=== PATIENT | female | born 1990 | race Caucasian/White ===

== ENCOUNTER 2018-01-20 15:17 | Emergency (ER) | payer MEDICAID ==
[2018-01-20] MEDS ORDERED: Phenergan 25 MG INJ IV ONE ×2 (15:54→18:13)
[2018-01-20] MEDS ORDERED: Sodium Chloride 0.9% 1000 ML 1,000 ML IV STA ×2 (15:54→16:38)
--- NOTE | 2018-01-20 15:54 | ERPHSYRPT ---
- History of Present Illness Time Seen by Provider: 01/20/18 15:50 Source: patient, family Exam Limitations: no limitations Patient Subjective Stated Complaint: Pt states "I am 10 weeks and for the past 4 days I have been vomiting and now it am just dry heaving." Triage Nursing Assessment: Pt alert and oriented X 3, skin pwd. PT ambulates with an upright steady gait, able to speak in clear full sentences. Pt in no apparent respiratory distress. Physician History: The patient is a 27-year-old at 10 weeks female with her and daughter complaining of frequent vomiting for the last 4 days. She's been vomiting throughout her . She was taking Zofran ODT but was switched to a different anti-medic that has not worked well. She denies fever or chills. She denies diarrhea. She has some abdominal cramping while she is vomiting. During her first she also had frequent vomiting. Timing/Duration: day(s) (4), intermittent, gradual onset, worse Severity: severe Modifying Factors: Improves With: nothing Associated Symptoms: nausea, vomiting, abdominal pain Allergies/Adverse Reactions: latex Allergy (Severe, Verified 01/20/18 15:29) Sulfa (Sulfonamide Antibiotics) Allergy (Severe, Verified 01/20/18 15:29) Home Medications: Vits W-Ca,Fe,FA(<1Mg) [] 1 each PO DAILY 01/20/18 [History] Hx Tetanus, Diphtheria Vaccination/Date Given: Yes Hx Influenza Vaccination/Date Given: No Hx Pneumococcal Vaccination/Date Given: No Immunizations Up to Date: Yes - Review of Systems Constitutional: No Fever, No Chills Eyes: No Symptoms Ears, Nose, & Throat: No Symptoms Respiratory: No Cough, No Dyspnea Cardiac: No Chest Pain, No Edema, No Syncope Abdominal/Gastrointestinal: Abdominal Pain, Nausea, Vomiting Genitourinary Symptoms: No Dysuria Musculoskeletal: No Back Pain, No Neck Pain Skin: No Rash Neurological: No Dizziness, No Focal Weakness, No Sensory Changes Psychological: No Symptoms Endocrine: No Symptoms Hematologic/Lymphatic: No Symptoms Immunological/Allergic: No Symptoms All Other Systems: Reviewed and Negative - Past Medical History Pertinent Past Medical History: No - Past Surgical History Past Surgical History: Yes Other Surgical History: tonsils. appendectomy - Social History Smoking Status: Never smoker Exposure to second hand smoke: No Drug Use: none Patient Lives Alone: No - Female History Hx Last Menstrual Period: 10/2017 Hx Now: Yes Expected Date of Delivery: 08/09/18 - Nursing Vital Signs Nursing Vital Signs: Initial Vital Signs Temperature 97.5 F 01/20/18 15:22 Pulse Rate 102 H 01/20/18 15:22 Respiratory Rate 18 01/20/18 15:22 Blood Pressure 150/102 01/20/18 15:22 O2 Sat by Pulse Oximetry 99 01/20/18 15:22 Pain Scale Pain Intensity 0 - Physical Exam General Appearance: no apparent distress, alert Eye Exam: PERRL/EOMI, eyes nml inspection Ears, Nose, Throat Exam: normal ENT inspection, TMs normal, pharynx normal, moist mucous membranes Neck Exam: normal inspection, non-tender, supple, full range of motion Respiratory Exam: normal breath sounds, lungs clear, No respiratory distress Cardiovascular Exam: regular rate/rhythm, normal heart sounds, normal peripheral pulses Gastrointestinal/Abdomen Exam: soft, normal bowel sounds, No tenderness, No mass Pelvic Exam: not done Rectal Exam: not done Back Exam: normal inspection, normal range of motion, No CVA tenderness, No vertebral tenderness Extremity Exam: normal inspection, normal range of motion, pelvis stable Neurologic Exam: alert, oriented x 3, cooperative, normal mood/affect, nml cerebellar function, nml station & gait, sensation nml, No motor deficits Skin Exam: normal color, warm, dry, No rash Lymphatic Exam: No adenopathy SpO2 Interpretation: normal SpO2: 99 Oxygen Delivery: Room Air Ordered Tests: Active Orders 24 hr Category Date Time Status Clean Catch Urine Specimen STAT Care 01/20/18 15:54 Active IV Insertion STAT Care 01/20/18 15:33 Active BMP Stat Lab 01/20/18 15:50 Completed CBC W DIFF Stat Lab 01/20/18 15:50 Completed CULTURE,URINE Stat Lab 01/20/18 17:42 Received UA W/RFX UR CULTURE Stat Lab 01/20/18 17:42 Completed Medication Summary Discontinued Medications Generic Name Dose Route Start Last Admin Trade Name Freq PRN Reason Stop Dose Admin Sodium Chloride 1,000 mls @ 999 mls/hr 01/20/18 15:54 01/20/18 16:51 Sodium Chloride 0.9% 1000 Ml IV 01/20/18 16:54 Infused .Q1H1M STA Infusion Sodium Chloride Confirm 01/20/18 15:56 Sodium Chloride 0.9% 1000 Ml Administered 01/20/18 15:57 Dose 1,000 mls @ ud .ROUTE .STK-MED ONE Sodium Chloride 1,000 mls @ 999 mls/hr 01/20/18 16:38 01/20/18 17:48 Sodium Chloride 0.9% 1000 Ml IV 01/20/18 17:38 Infused .Q1H1M STA Infusion Sodium Chloride Confirm 01/20/18 16:47 Sodium Chloride 0.9% 1000 Ml Administered 01/20/18 16:48 Dose 1,000 mls @ ud .ROUTE .STK-MED ONE Promethazine HCl 12.5 mg 01/20/18 15:54 01/20/18 16:01 Phenergan 25 Mg Inj IV 01/20/18 15:55 12.5 mg STAT ONE Administration Promethazine HCl Confirm 01/20/18 15:56 Phenergan 25 Mg Inj Administered 01/20/18 15:57 Dose 25 mg .ROUTE .STK-MED ONE Lab/Rad Data: Laboratory Result Diagrams 01/20/18 15:50 01/20/18 15:50 Laboratory Results 01/20/18 01/20/18 01/20/18 Range/Units 17:42 15:50 15:50 WBC 7.9 (4.0-10.5) K/mm3 RBC 5.06 (4.1-5.4) M/mm3 Hgb 14.9 (12.0-16.0) gm/dl Hct 41.7 (35-47) % MCV 82.4 (78-100) fl MCH 29.4 (26-32) pg MCHC 35.7 (32-36) g/dl RDW 13.3 (11.5-14.0) % Plt Count 239 (150-450) K/mm3 MPV 9.6 H (6-9.5) fl Gran % 79.0 H (36.0-66.0) % Eos # (Auto) 0.03 (0-0.5) Absolute Lymphs (auto) 0.99 L (1.0-4.6) Absolute Monos (auto) 0.62 (0.0-1.3) Lymphocytes % 12.6 L (24.0-44.0) % Monocytes % 7.9 (0.0-12.0) % Eosinophils % 0.4 (0.00-5.0) % Basophils % 0.1 (0.0-0.4) % Absolute Granulocytes 6.20 (1.4-6.9) Basophils # 0.01 (0-0.4) Sodium 136 L (137-145) mmol/L Potassium 3.6 (3.5-5.1) mmol/L Chloride 99 (98-107) mmol/L Carbon Dioxide 24 (22-30) mmol/L Anion Gap 16.7 H (5-15) MEQ/L BUN 6 L (7-17) mg/dL Creatinine 0.56 (0.52-1.04) mg/dL Estimated GFR > 60.0 ML/MIN Glucose 100 (74-106) mg/dL Calcium 10.1 (8.4-10.2) mg/dL Urine Color DARK YELLOW (YELLOW) Urine Appearance CLOUDY (CLEAR) Urine pH 6.0 (5-6) Ur Specific [place] 1.028 (1.005-1.025) Urine Protein 30 (Negative) Urine Ketones MODERATE (NEGATIVE) Urine Blood NEGATIVE (0-5) David/ul Urine Nitrite NEGATIVE (NEGATIVE) Urine Bilirubin NEGATIVE (NEGATIVE) Urine Urobilinogen 4 (0-1) mg/dL Ur Leukocyte Esterase LARGE (NEGATIVE) Urine WBC (Auto) 11-15 (0-5) /HPF Urine RBC (Auto) 3-5 (0-2) /HPF U Epithel Cells (Auto) FEW (FEW) /HPF Urine Mucus (Auto) MANY (NEGATIVE) /HPF Urine Culture Reflexed YES (NO) Urine Glucose NEGATIVE (NEGATIVE) mg/dL - Progress Progress: improved Counseled pt/family regarding: lab results, diagnosis, need for follow-up - Departure Time of Disposition: 18:14 Departure Disposition: Home Clinical Impression: Hyperemesis gravidarum, UTI (urinary tract infection) Condition: Stable Critical Care Time: No Referrals: EFREN IBRAHIM [Primary Care Provider] - Additional Instructions: You have hyperemesis gravidarum and a UTI. You were given Phenergan 12-1/2 mg by IV 2 times in the ER and 2 L of fluids by IV in the ER. You were also given Keflex 500 mg orally. Take Phenergan 25 mg every 8 hours as needed for vomiting and nausea. Take Keflex 500 mg 4 times a day for 7 days. Follow-up with your OB doctor within one to 2 days. Prescriptions: Promethazine HCl 25 mg [Phenergan 25 mg] 25 mg PO Q8H PRN PRN #10 tablet PRN Reason: Nausea/Vomiting Cephalexin Mh 500 mg [Keflex 500 mg] 1 cap PO QID #28 capsule
[2018-01-20] MEDS ORDERED: Phenergan 25 MG INJ ONE ×2 (15:56→18:16)
[2018-01-20] MEDS ORDERED: Sodium Chloride 0.9% 1000 ML 1,000 ML ONE ×2 (15:56→16:47)
[2018-01-20 16:04] LABS: BASOPHIL % 0.1 % (0.0-0.4); Basophil (Absolute #) 0.01 (0-0.4); Eosinophil % 0.4 % (0.00-5.0); Eosinophil (Absolute #) 0.03 (0-0.5); Hematocrit 41.7 % (35-47); Hemoglobin 14.9 gm/dl (12.0-16.0); Lymphocyte (Absolute #) 0.99 (1.0-4.6); Lymphocytes % 12.6 % (24.0-44.0); Mean Cell Volume 82.4 fl (78-100); Mean Corpuscular Hemoglobin 29.4 pg (26-32); Mean Corpuscular Hgb Concent. 35.7 g/dl (32-36); Mean Platelet Volume 9.6 fl (6-9.5); Monocyte (Absolute #) 0.62 (0.0-1.3); Monocytes % 7.9 % (0.0-12.0); Platelet Count 239 K/mm3 (150-450); Red Blood Count 5.06 M/mm3 (4.1-5.4); Red Cell Distribution Width 13.3 % (11.5-14.0); White Blood Count 7.9 K/mm3 (4.0-10.5)
[2018-01-20 16:17] LABS: ANION GAP 16.7 MEQ/L (5-15); BLOOD UREA NITROGEN 6 mg/dL (7-17); CHLORIDE 99 mmol/L (98-107); Calcium 10.1 mg/dL (8.4-10.2); Carbon Dioxide 24 mmol/L (22-30); Creatinine 1 0.56 mg/dL (0.52-1.04); Glucose 100 mg/dL (74-106); Potassium 3.6 mmol/L (3.5-5.1); SODIUM 136 mmol/L (137-145)
[2018-01-20 16:52] VITALS: O2SAT 99
[2018-01-20 18:04] LABS: Appearance CLOUDY (CLEAR); Bilirubin NEGATIVE (NEGATIVE); Blood NEGATIVE Ery/ul (0-5); Glucose NEGATIVE (NEGATIVE); Ketones MODERATE (NEGATIVE); Leukocyte Esterase LARGE (NEGATIVE); Nitrite NEGATIVE (NEGATIVE); Protein,Urine Dip 30 (Negative); Specific Gravity 1.028 (1.005-1.025); Urobilinogen 4 mg/dL (0-1)
[2018-01-20] MEDS ORDERED: KEFLEX 500 MG PO ONE (18:15)
[2018-01-20] MEDS ORDERED: KEFLEX 500 MG ONE (18:17)
[2018-01-20 18:27] VITALS: BP 167/94; PULSE 84
[2018-01-20] MEDS ORDERED: PHENERGAN 25 MG PO ONE (18:33)
[2018-01-20] MEDS ORDERED: PHENERGAN 25 MG ONE (18:36)
== END 2018-01-20 18:46 | disposition home or self-care (01) ==
LOC: ED 15:17
DX: O21.0 Mild hyperemesis gravidarum (principal); O23.41 Unspecified infection of urinary tract in pregnancy, first trimester; Z3A.10 10 weeks gestation of pregnancy
CPT/HCPCS: 36000; 36415; 80048; 81001; 85025; 87086; 96360; 96361; 96374; 96376; 99284; J2550; A9270-GY

== ENCOUNTER 2018-04-06 16:15 | Observation (INO) | payer OTHER ==
[2018-04-06] MEDS ORDERED: Lactated Ringers 1,000 ML IV ONE ×2 (16:31→16:35)
[2018-04-06 16:49] VITALS: BP 122/79; PULSE 86
== END 2018-04-06 17:55 | disposition home or self-care (01) ==
LOC: OB 16:15
PROVIDERS: ADMIT Family Medicine; ATTEND Family Medicine
DX: E86.0 Dehydration (principal); Z33.1 Pregnant state, incidental
CPT/HCPCS: G0378

== ENCOUNTER 2018-04-10 21:50 | Observation (INO) | payer OTHER ==
[2018-04-10] MEDS ORDERED: Lactated Ringers 1,000 ML IV ONE ×2 (23:21→23:24)
[2018-04-10] MEDS ORDERED: Zofran 4 MG/2 ML VIAL IV STA (23:21)
[2018-04-10] MEDS ORDERED: Zofran 4 MG/2 ML VIAL ONE (23:24)
[2018-04-11 02:10] VITALS: BP 117/69; PULSE 83; O2SAT 97
== END 2018-04-11 02:30 | disposition home or self-care (01) ==
LOC: EDSTATUS 22:26 → MED SURG 22:27
PROVIDERS: ADMIT Family Medicine; ATTEND Family Medicine
DX: Z34.82 Encounter for supervision of other normal pregnancy, second trimester (principal)
CPT/HCPCS: G0378 ×2; J2405

== ENCOUNTER 2018-04-18 17:57 | Observation (INO) | payer OTHER ==
[2018-04-18] MEDS ORDERED: Lactated Ringers 1,000 ML IV ONE ×3 (18:14→19:37)
[2018-04-18] MEDS ORDERED: Lactated Ringers 1,000 ML IV SCH (18:30)
[2018-04-18 18:58] LABS: BASOPHIL % 0.2 % (0.0-0.4); Basophil (Absolute #) 0.02 (0-0.4); Eosinophil % 0.6 % (0.00-5.0); Eosinophil (Absolute #) 0.06 (0-0.5); Granulocyte Absolute (ANC) 8.34 (1.4-6.9); Granulocytes % 86.1 % (36.0-66.0); Hematocrit 35.2 % (35-47); Hemoglobin 11.8 gm/dl (12.0-16.0); Lymphocyte (Absolute #) 0.79 (1.0-4.6); Lymphocytes % 8.2 % (24.0-44.0); Mean Cell Volume 88.7 fl (78-100); Mean Corpuscular Hemoglobin 29.7 pg (26-32); Mean Corpuscular Hgb Concent. 33.5 g/dl (32-36); Mean Platelet Volume 9.9 fl (6-9.5); Monocyte (Absolute #) 0.47 (0.0-1.3); Monocytes % 4.9 % (0.0-12.0); Platelet Count 209 K/mm3 (150-450); Red Blood Count 3.97 M/mm3 (4.1-5.4); Red Cell Distribution Width 13.6 % (11.5-14.0); White Blood Count 9.7 K/mm3 (4.0-10.5)
[2018-04-18 19:14] LABS: ALKALINE PHOSPHATASE 112 U/L (38-126); ANION GAP 14.4 MEQ/L (5-15); BLOOD UREA NITROGEN 8 mg/dL (7-17); CHLORIDE 103 mmol/L (98-107); Calcium 9.2 mg/dL (8.4-10.2); Carbon Dioxide 21 mmol/L (22-30); Glucose 87 mg/dL (74-106); Potassium 3.7 mmol/L (3.5-5.1); SGOT/AST 12 U/L (14-36); SGPT/ALT 14 U/L (0-35); SODIUM 135 mmol/L (137-145)
[2018-04-18] MEDS ORDERED: Zofran 4 MG/2 ML VIAL IV PRN (19:46)
[2018-04-18] MEDS ORDERED: Zofran 4 MG/2 ML VIAL ONE (19:53)
[2018-04-18 20:43] LABS: Appearance SLIGHTLY CLOUDY (CLEAR); Bilirubin NEGATIVE (NEGATIVE); Blood NEGATIVE Ery/ul (0-5); Glucose NEGATIVE (NEGATIVE); Ketones MODERATE (NEGATIVE); Leukocyte Esterase SMALL (NEGATIVE); Nitrite NEGATIVE (NEGATIVE); Protein,Urine Dip 30 (Negative); Specific Gravity 1.029 (1.005-1.025); Urobilinogen 2 mg/dL (0-1)
[2018-04-18 20:50] LABS: Amphetamine,Urine NEGATIVE (NEGATIVE); Barbiturate,Urine NEGATIVE (NEGATIVE); Benzodiazepine,Urine NEGATIVE (NEGATIVE); Cocaine,Urine NEGATIVE (NEGATIVE); Methadone,Urine NEGATIVE (NEGATIVE); Opiate,Urine NEGATIVE (NEGATIVE); PCP,Urine NEGATIVE (NEGATIVE); THC,Urine NEGATIVE (NEGATIVE)
[2018-04-18] MEDS ORDERED: ROCEPHIN 1 Gm-D5w 50 ml Bag** 1 G/50 ML IVPB IV ONE ×2 (21:24→22:00)
[2018-04-18 23:01] VITALS: BP 124/71; PULSE 90
[2018-04-19] MEDS ORDERED: ROCEPHIN 1 Gm-D5w 50 ml Bag** 1 G/50 ML IVPB IV ONE (22:00)
== END 2018-04-18 22:20 | disposition home or self-care (01) ==
LOC: UNDOADMOB 17:57 → MED SURG 17:57 → UNDODISOB 22:20
PROVIDERS: ADMIT Family Medicine; ATTEND Family Medicine
DX: Z34.82 Encounter for supervision of other normal pregnancy, second trimester (principal)
CPT/HCPCS: 36415; 80053; 80307; 81001; 85025; 87086; G0378; J0696; J2405

== ENCOUNTER 2018-04-25 12:55 | Emergency (ER) | payer OTHER ==
--- NOTE | 2018-04-25 13:42 | ERPHSYRPT ---
- History of Present Illness Time Seen by Provider: 04/25/18 13:35 Source: patient Exam Limitations: no limitations Patient Subjective Stated Complaint: vomiting since yesterday, 24 weeks Triage Nursing Assessment: Pt c/o of N&V for past 2 days, 3rd visit in past 3 weeks for same issue due to , appears weak and lethargic, 24 weeks , pain with palpatation in both lower quadrants of abdomen, tachycardic , afebrile, last BM 2 days ago, reports history of constipation, no other issues at this time Physician History: The patient is a 28-year-old female at 24 weeks with her complaining of nausea and vomiting for the past 2 days. She has experienced frequent nausea and vomiting during this entire . She ran out of Zofran. Her OB doctor called a prescription in to the pharmacy but she has not picked it up yet. She says that she is seeing spots when she stands up. She denies abdominal pain Timing/Duration: yesterday, intermittent, gradual onset Severity: moderate Modifying Factors: Improves With: nothing Associated Symptoms: nausea, vomiting Allergies/Adverse Reactions: acetaminophen Allergy (Severe, Verified 04/25/18 13:12) Anaphylactic Reaction latex Allergy (Severe, Verified 04/25/18 13:12) Hives Sulfa (Sulfonamide Antibiotics) Allergy (Severe, Verified 04/25/18 13:12) Hives Bleach (Sodium Hypochlorite) Allergy (Verified 04/25/18 13:12) Home Medications: Vits W-Ca,Fe,FA(<1Mg) [] 1 each PO DAILY 01/20/18 [History] Ondansetron ODT 4 MG [Zofran Odt 4 mg] 4 mg PO Q6H PRN PRN 04/10/18 [ History] Hx Tetanus, Diphtheria Vaccination/Date Given: Yes Hx Influenza Vaccination/Date Given: No Hx Pneumococcal Vaccination/Date Given: No - Review of Systems Constitutional: No Fever, No Chills Eyes: No Symptoms Ears, Nose, & Throat: No Symptoms Respiratory: No Cough, No Dyspnea Cardiac: No Chest Pain, No Edema, No Syncope Abdominal/Gastrointestinal: Nausea, Vomiting, No Diarrhea Genitourinary Symptoms: No Dysuria Musculoskeletal: No Back Pain, No Neck Pain Skin: No Rash Neurological: No Dizziness, No Focal Weakness, No Sensory Changes Psychological: No Symptoms Endocrine: No Symptoms Hematologic/Lymphatic: No Symptoms Immunological/Allergic: No Symptoms All Other Systems: Reviewed and Negative - Past Medical History Pertinent Past Medical History: No Other Medical History: pre eclampsia with 1st - Past Surgical History Past Surgical History: Yes Gastrointestinal: Appendectomy Other Surgical History: tonsils. appendectomy - Social History Smoking Status: Never smoker Exposure to second hand smoke: No Drug Use: none Patient Lives Alone: No - Female History Hx Now: Yes Expected Date of Delivery: 08/12/18 - Nursing Vital Signs Nursing Vital Signs: Initial Vital Signs Temperature 97.4 F 04/25/18 13:02 Pulse Rate 110 H 04/25/18 13:02 Blood Pressure 127/86 04/25/18 13:02 O2 Sat by Pulse Oximetry 98 04/25/18 13:02 Pain Scale Pain Intensity 3 - Physical Exam General Appearance: no apparent distress, alert Eye Exam: PERRL/EOMI, eyes nml inspection Ears, Nose, Throat Exam: normal ENT inspection, TMs normal, pharynx normal, moist mucous membranes Neck Exam: normal inspection, non-tender, supple, full range of motion Respiratory Exam: normal breath sounds, lungs clear, No respiratory distress Cardiovascular Exam: regular rate/rhythm, normal heart sounds, normal peripheral pulses Gastrointestinal/Abdomen Exam: soft, normal bowel sounds, No tenderness, No mass Pelvic Exam: not done Rectal Exam: not done Back Exam: normal inspection, normal range of motion, No CVA tenderness, No vertebral tenderness Extremity Exam: normal inspection, normal range of motion, pelvis stable Neurologic Exam: alert, oriented x 3, cooperative, normal mood/affect, nml cerebellar function, nml station & gait, sensation nml, No motor deficits Skin Exam: normal color, warm, dry, No rash Lymphatic Exam: No adenopathy SpO2 Interpretation: normal SpO2: 98 Oxygen Delivery: Room Air Ordered Tests: Active Orders 24 hr Category Date Time Status Clean Catch Urine Specimen STAT Care 04/25/18 13:44 Active Heart Tones-ED STAT Care 04/25/18 13:46 Active IV Insertion STAT Care 04/25/18 13:44 Active BMP Stat Lab 04/25/18 13:45 Completed CBC W DIFF Stat Lab 04/25/18 13:45 Completed CULTURE,URINE Stat Lab 04/25/18 14:16 Received Lactic Acid Stat Lab 04/25/18 13:52 Completed UA W/RFX UR CULTURE Stat Lab 04/25/18 14:16 Completed Medication Summary Generic Name Dose Route Start Last Admin Trade Name Roque GIMENEZN Reason Stop Dose Admin Sodium Chloride 1,000 mls @ 999 mls/hr 04/25/18 15:01 04/25/18 15:10 Sodium Chloride 0.9% 1000 Ml IV 04/25/18 16:01 999 mls/hr .Q1H1M STA Administration Discontinued Medications Generic Name Dose Route Start Last Admin Trade Name Roque PRN Reason Stop Dose Admin Sodium Chloride 1,000 mls @ 999 mls/hr 04/25/18 13:44 04/25/18 15:10 Sodium Chloride 0.9% 1000 Ml IV 04/25/18 14:44 Infused .Q1H1M STA Infusion Sodium Chloride Confirm 04/25/18 14:00 Sodium Chloride 0.9% 1000 Ml Administered 04/25/18 14:01 Dose 1,000 mls @ ud .ROUTE .STK-MED ONE Sodium Chloride Confirm 04/25/18 15:09 Sodium Chloride 0.9% 1000 Ml Administered 04/25/18 15:10 Dose 1,000 mls @ ud .ROUTE .STK-MED ONE Promethazine HCl 25 mg 04/25/18 13:44 04/25/18 14:05 Phenergan 25 Mg Inj IV 04/25/18 13:45 25 mg STAT ONE Administration Promethazine HCl Confirm 04/25/18 14:00 Phenergan 25 Mg Inj Administered 04/25/18 14:01 Dose 25 mg .ROUTE .STK-MED ONE Lab/Rad Data: Laboratory Result Diagrams 04/25/18 13:45 04/25/18 13:45 Laboratory Results 04/25/18 04/25/18 04/25/18 Range/Units 14:16 13:52 13:45 WBC (4.0-10.5) K/mm3 RBC (4.1-5.4) M/mm3 Hgb (12.0-16.0) gm/dl Hct (35-47) % MCV (78-100) fl MCH (26-32) pg MCHC (32-36) g/dl RDW (11.5-14.0) % Plt Count (150-450) K/mm3 MPV (6-9.5) fl Gran % (36.0-66.0) % Eos # (Auto) (0-0.5) Absolute Lymphs (auto) (1.0-4.6) Absolute Monos (auto) (0.0-1.3) Lymphocytes % (24.0-44.0) % Monocytes % (0.0-12.0) % Eosinophils % (0.00-5.0) % Basophils % (0.0-0.4) % Absolute Granulocytes (1.4-6.9) Basophils # (0-0.4) Sodium 135 L (137-145) mmol/L Potassium 4.0 (3.5-5.1) mmol/L Chloride 103 (98-107) mmol/L Carbon Dioxide 21 L (22-30) mmol/L Anion Gap 14.9 (5-15) MEQ/L BUN 7 (7-17) mg/dL Creatinine 0.56 (0.52-1.04) mg/dL Estimated GFR > 60.0 ML/MIN Glucose 94 (74-106) mg/dL Lactic Acid 1.4 (0.4-2.0) Calcium 9.4 (8.4-10.2) mg/dL Urine Color YELLOW (YELLOW) Urine Appearance CLOUDY (CLEAR) Urine pH 5.0 (5-6) Ur Specific [place] 1.019 (1.005-1.025) Urine Protein 30 (Negative) Urine Ketones SMALL (NEGATIVE) Urine Blood NEGATIVE (0-5) David/ul Urine Nitrite NEGATIVE (NEGATIVE) Urine Bilirubin NEGATIVE (NEGATIVE) Urine Urobilinogen NEGATIVE (0-1) mg/dL Ur Leukocyte Esterase MODERATE (NEGATIVE) Urine WBC (Auto) 6-10 (0-5) /HPF Urine RBC (Auto) 3-5 (0-2) /HPF U Epithel Cells (Auto) FEW (FEW) /HPF Urine Bacteria (Auto) FEW (NEGATIVE) /HPF Urine Mucus (Auto) MODERATE (NEGATIVE) /HPF Urine Culture Reflexed YES (NO) Urine Glucose NEGATIVE (NEGATIVE) mg/dL 04/25/18 Range/Units 13:45 WBC 10.3 (4.0-10.5) K/mm3 RBC 4.22 (4.1-5.4) M/mm3 Hgb 12.4 (12.0-16.0) gm/dl Hct 37.2 (35-47) % MCV 88.2 (78-100) fl MCH 29.4 (26-32) pg MCHC 33.3 (32-36) g/dl RDW 13.6 (11.5-14.0) % Plt Count 211 (150-450) K/mm3 MPV 9.9 H (6-9.5) fl Gran % 87.6 H (36.0-66.0) % Eos # (Auto) 0.04 (0-0.5) Absolute Lymphs (auto) 0.75 L (1.0-4.6) Absolute Monos (auto) 0.47 (0.0-1.3) Lymphocytes % 7.3 L (24.0-44.0) % Monocytes % 4.6 (0.0-12.0) % Eosinophils % 0.4 (0.00-5.0) % Basophils % 0.1 (0.0-0.4) % Absolute Granulocytes 8.99 H (1.4-6.9) Basophils # 0.01 (0-0.4) Sodium (137-145) mmol/L Potassium (3.5-5.1) mmol/L Chloride (98-107) mmol/L Carbon Dioxide (22-30) mmol/L Anion Gap (5-15) MEQ/L BUN (7-17) mg/dL Creatinine (0.52-1.04) mg/dL Estimated GFR ML/MIN Glucose (74-106) mg/dL Lactic Acid (0.4-2.0) Calcium (8.4-10.2) mg/dL Urine Color (YELLOW) Urine Appearance (CLEAR) Urine pH (5-6) Ur Specific [place] (1.005-1.025) Urine Protein (Negative) Urine Ketones (NEGATIVE) Urine Blood (0-5) David/ul Urine Nitrite (NEGATIVE) Urine Bilirubin (NEGATIVE) Urine Urobilinogen (0-1) mg/dL Ur Leukocyte Esterase (NEGATIVE) Urine WBC (Auto) (0-5) /HPF Urine RBC (Auto) (0-2) /HPF U Epithel Cells (Auto) (FEW) /HPF Urine Bacteria (Auto) (NEGATIVE) /HPF Urine Mucus (Auto) (NEGATIVE) /HPF Urine Culture Reflexed (NO) Urine Glucose (NEGATIVE) mg/dL - Progress Progress: improved Progress Note: 04/25/18 15:01 heart tones 155. Counseled pt/family regarding: lab results, diagnosis - Departure Time of Disposition: 16:00 Departure Disposition: Home Clinical Impression: Hyperemesis gravidarum, UTI (urinary tract infection) Condition: Stable Critical Care Time: No Referrals: EFREN IBRAHIM [Primary Care Provider] - Additional Instructions: You have vomiting during your . You were given Phenergan 25 mg and 2 L of fluids by IV in the ER. You also have a mild UTI. Take Macrobid 100 mg 2 times a day for 7 days. Take Phenergan 25 mg suppositories every 8 hours as needed for nausea and vomiting. Take Zofran 4 mg ODT every 6 hours as needed for nausea and vomiting. Follow-up with your OB doctor as needed. Prescriptions: Ondansetron ODT 4 MG [Zofran Odt 4 mg] 4 mg PO Q6H PRN PRN #10 tab.rapdis PRN Reason: Nausea/Vomiting Promethazine HCl 25 mg Supp [Phenergan 25 mg Supp] 25 mg RC Q8H PRN PRN # 12 supp.rect PRN Reason: Nausea/Vomiting Nitrofurantoin Macro 100 mg [Macrobid 100MG Capsule] 100 mg PO BID #14 cap
[2018-04-25] MEDS ORDERED: Phenergan 25 MG INJ IV ONE (13:44)
[2018-04-25] MEDS ORDERED: Sodium Chloride 0.9% 1000 ML 1,000 ML IV STA ×2 (13:44→15:01)
[2018-04-25] MEDS ORDERED: Phenergan 25 MG INJ ONE (14:00)
[2018-04-25] MEDS ORDERED: Sodium Chloride 0.9% 1000 ML 1,000 ML ONE ×2 (14:00→15:09)
[2018-04-25 14:04] LABS: BASOPHIL % 0.1 % (0.0-0.4); Basophil (Absolute #) 0.01 (0-0.4); Eosinophil % 0.4 % (0.00-5.0); Eosinophil (Absolute #) 0.04 (0-0.5); Granulocytes % 87.6 % (36.0-66.0); Hematocrit 37.2 % (35-47); Hemoglobin 12.4 gm/dl (12.0-16.0); Lymphocyte (Absolute #) 0.75 (1.0-4.6); Lymphocytes % 7.3 % (24.0-44.0); Mean Cell Volume 88.2 fl (78-100); Mean Corpuscular Hemoglobin 29.4 pg (26-32); Mean Corpuscular Hgb Concent. 33.3 g/dl (32-36); Mean Platelet Volume 9.9 fl (6-9.5); Monocyte (Absolute #) 0.47 (0.0-1.3); Monocytes % 4.6 % (0.0-12.0); Platelet Count 211 K/mm3 (150-450); Red Blood Count 4.22 M/mm3 (4.1-5.4); Red Cell Distribution Width 13.6 % (11.5-14.0); White Blood Count 10.3 K/mm3 (4.0-10.5)
[2018-04-25 14:20] LABS: ANION GAP 14.9 MEQ/L (5-15); BLOOD UREA NITROGEN 7 mg/dL (7-17); CHLORIDE 103 mmol/L (98-107); Calcium 9.4 mg/dL (8.4-10.2); Carbon Dioxide 21 mmol/L (22-30); Creatinine 1 0.56 mg/dL (0.52-1.04); Glucose 94 mg/dL (74-106); SODIUM 135 mmol/L (137-145)
[2018-04-25 14:27] LABS: Appearance CLOUDY (CLEAR); Bacteria FEW /HPF (NEGATIVE); Bilirubin NEGATIVE (NEGATIVE); Blood NEGATIVE Ery/ul (0-5); Epithelial Cells FEW /HPF (FEW); Glucose NEGATIVE (NEGATIVE); Ketones SMALL (NEGATIVE); Leukocyte Esterase MODERATE (NEGATIVE); Mucus MODERATE /HPF (NEGATIVE); Nitrite NEGATIVE (NEGATIVE); Protein,Urine Dip 30 (Negative); Specific Gravity 1.019 (1.005-1.025); Urobilinogen NEGATIVE mg/dL (0-1)
[2018-04-25 16:15] VITALS: BP 108/76; PULSE 87; O2SAT 97
== END 2018-04-25 16:15 | disposition home or self-care (01) ==
LOC: ED 12:55
DX: O21.0 Mild hyperemesis gravidarum (principal); O23.42 Unspecified infection of urinary tract in pregnancy, second trimester; Z3A.24 24 weeks gestation of pregnancy
CPT/HCPCS: 36000; 36415; 80048; 81001; 83605; 85025; 87086; 96360; 96374; 99284; J2550

== ENCOUNTER 2018-05-07 11:58 | Observation (INO) | payer OTHER ==
[2018-05-07] MEDS ORDERED: Lactated Ringers 1,000 ML IV ONE (12:25)
--- NOTE | 2018-05-07 14:38 | XRAY ---
Indication: Irregular heart rate. 2-dimensional OB ultrasound performed. Comparison: April 01, 2018. Again there is a single viable intrauterine now in cephalic presentation. heart rate 127 BPM with intermittent irregularity. anatomy including three-vessel cord and cord insertion previously documented. Visualized stomach and bladder appear unremarkable. Anterior placenta without abruption/previa. BPD measures 7.08 cm corresponding to 28 weeks 3 days. HC measures 25.80 cm corresponding to 28 weeks 0 day. AC measures 23.75 cm corresponding to 28 weeks 0 day. FL measures 5.17 cm corresponding to 27 weeks 4 days. CHAIM is 14.7 cm. Impression: Again single viable intrauterine with mean gestational age 28 weeks 0 day. Normal progression of . Intermittent irregular heart rate observed.
[2018-05-07 14:39] VITALS: BP 133/68; PULSE 90
== END 2018-05-07 14:30 | disposition home or self-care (01) ==
LOC: OB 11:58
PROVIDERS: ADMIT Family Medicine; ATTEND Family Medicine
DX: Z34.82 Encounter for supervision of other normal pregnancy, second trimester (principal)
CPT/HCPCS: 76805; 81003; G0378

== ENCOUNTER 2018-05-27 02:46 | Observation (INO) | payer OTHER ==
[2018-05-27 04:23] LABS: Appearance CLOUDY (CLEAR); Bilirubin NEGATIVE (NEGATIVE); Blood NEGATIVE Ery/ul (0-5); Epithelial Cells RARE /HPF (FEW); Glucose NEGATIVE (NEGATIVE); Ketones NEGATIVE (NEGATIVE); Leukocyte Esterase NEGATIVE (NEGATIVE); Mucus SLIGHT /HPF (NEGATIVE); Nitrite NEGATIVE (NEGATIVE); Protein,Urine Dip NEGATIVE (Negative); Specific Gravity 1.019 (1.005-1.025); Urobilinogen NEGATIVE mg/dL (0-1)
[2018-05-27] MEDS ORDERED: Lactated Ringers 1,000 ML IV ONE (04:44)
[2018-05-27] MEDS ORDERED: Lactated Ringers 1,000 ML IV SCH (05:00)
--- NOTE | 2018-05-27 08:38 | XRAY ---
Indication: Cervical length. Contractions. Limited OB ultrasound performed to evaluate cervical length. Cervix is closed and measures 3.2 cm in length.
[2018-05-27 08:58] LABS: Hematocrit 33.8 % (35-47); Hemoglobin 10.9 gm/dl (12.0-16.0); Mean Cell Volume 88.9 fl (78-100); Mean Corpuscular Hgb Concent. 32.2 g/dl (32-36); Mean Platelet Volume 10.3 fl (6-9.5); Platelet Count 208 K/mm3 (150-450); Red Cell Distribution Width 13.5 % (11.5-14.0); White Blood Count 9.5 K/mm3 (4.0-10.5)
[2018-05-27 09:02] LABS: ALBUMIN 3.6 g/dL (3.5-5.0); ALKALINE PHOSPHATASE 110 U/L (38-126); ANION GAP 12.6 MEQ/L (5-15); BLOOD UREA NITROGEN 9 mg/dL (7-17); CHLORIDE 106 mmol/L (98-107); Calcium 9.1 mg/dL (8.4-10.2); Carbon Dioxide 23 mmol/L (22-30); Glucose 89 mg/dL (74-106); Potassium 3.9 mmol/L (3.5-5.1); SGOT/AST 15 U/L (14-36); SGPT/ALT 13 U/L (0-35); SODIUM 137 mmol/L (137-145); Total Protein 6.5 g/dL (6.3-8.2)
[2018-05-27 09:11] LABS: Mean Corpuscular Hemoglobin 28.6 pg (26-32)
[2018-05-27 10:39] LABS: Lymphocytes 19 % (24-44); Monocyte 7 % (0.0-12.0); Neutrophils 74 % (36.0-66.0); Platelet Estimate NORMAL (NORMAL); Total Cells Counted 100
[2018-05-27 12:04] VITALS: BP 122/62; PULSE 93
== END 2018-05-27 10:05 | disposition home or self-care (01) ==
LOC: OB 02:46
PROVIDERS: ADMIT Family Medicine; ATTEND Family Medicine
DX: Z34.83 Encounter for supervision of other normal pregnancy, third trimester (principal)
CPT/HCPCS: 36415; 76815; 80053; 81001; 83986; 85025; G0378

== ENCOUNTER 2018-05-29 13:54 | Emergency (ER) | payer OTHER ==
[2018-05-29] MEDS ORDERED: Sodium Chloride 0.9% 1000 ML 1,000 ML IV STA (14:38)
[2018-05-29] MEDS ORDERED: Sodium Chloride 0.9% 1000 ML 1,000 ML ONE (14:53)
--- NOTE | 2018-05-29 15:06 | XRAY ---
Indication: Fever and cough. 29 weeks . Comparison: None Portable chest demonstrates normal heart and lungs. Bony thorax intact with old right 2nd rib fracture.
[2018-05-29 15:08] LABS: Hematocrit 32.3 % (35-47); Hemoglobin 10.7 gm/dl (12.0-16.0); Mean Cell Volume 86.8 fl (78-100); Mean Corpuscular Hgb Concent. 33.1 g/dl (32-36); Mean Platelet Volume 9.4 fl (6-9.5); Platelet Count 162 K/mm3 (150-450); Red Blood Count 3.72 M/mm3 (4.1-5.4); Red Cell Distribution Width 13.4 % (11.5-14.0); White Blood Count 5.1 K/mm3 (4.0-10.5)
[2018-05-29 15:16] LABS: Mean Corpuscular Hemoglobin 28.7 pg (26-32)
[2018-05-29 15:25] LABS: ANION GAP 14.2 MEQ/L (5-15); BLOOD UREA NITROGEN 7 mg/dL (7-17); CHLORIDE 102 mmol/L (98-107); Carbon Dioxide 20 mmol/L (22-30); Creatinine 1 0.73 mg/dL (0.52-1.04); Glucose 97 mg/dL (74-106); Potassium 3.8 mmol/L (3.5-5.1); SODIUM 133 mmol/L (137-145)
[2018-05-29 15:48] LABS: Group A Strep NEGATIVE (NEGATIVE); INFLUENZA A POSITIVE (NEGATIVE)
[2018-05-29 15:49] LABS: INFLUENZA B NEGATIVE (NEGATIVE); RESPIRATORY SYNCTIAL VIRUS NEGATIVE (Negative)
[2018-05-29] MEDS ORDERED: Tamiflu 75MG Capsule PO ONE ×2 (15:49→15:50)
[2018-05-29 15:55] LABS: Appearance CLOUDY (CLEAR); Bacteria RARE /HPF (NEGATIVE); Bilirubin NEGATIVE (NEGATIVE); Blood NEGATIVE Ery/ul (0-5); Epithelial Cells FEW /HPF (FEW); Glucose NEGATIVE (NEGATIVE); Ketones SMALL (NEGATIVE); Leukocyte Esterase MODERATE (NEGATIVE); Mucus MANY /HPF (NEGATIVE); Nitrite NEGATIVE (NEGATIVE); Protein,Urine Dip 100 (Negative); Specific Gravity 1.026 (1.005-1.025); Urobilinogen 4 mg/dL (0-1)
[2018-05-29 16:03] LABS: BAND 8 % (0.0-2.0); Lymphocytes 2 % (24-44); Monocyte 3 % (0.0-12.0); Neutrophils 87 % (36.0-66.0); Platelet Estimate NORMAL (NORMAL); Total Cells Counted 100
[2018-05-29] MEDS ORDERED: KEFLEX 500 MG PO ONE (16:03)
[2018-05-29] MEDS ORDERED: KEFLEX 500 MG ONE (16:15)
--- NOTE | 2018-05-29 16:15 | ERPHSYRPT ---
- History of Present Illness Time Seen by Provider: 05/29/18 14:15 Source: patient Exam Limitations: no limitations Patient Subjective Stated Complaint: TO ER C/O FEVER COUGH AND VOMITING DT THICK SPUTUM X 24 HOUR PT STATES SHE IS 29 WEEKS AND UNABLE TO TAKE ANY COLD MEDICINE. PT STATES SPOUSE IS RECENTLY SICK ALSO. Triage Nursing Assessment: PT ARRIVES PALE/W/D RESP EASY TACHY THOUGH REG. RESP EASY AND CTA Physician History: 28 y/o white female who is 29 weeks and presents with cough and fever of less than 24 hour duration. pt is allergic to tylenol (causes her to stop breathing) and cannot take ibuprofen as she is . pt has an appt to see dr. vidal tomorrow Timing/Duration: yesterday (1) Fever Severity: moderate Fever Therapy CHARACTER ACTOR: none Allergies/Adverse Reactions: acetaminophen Allergy (Severe, Verified 05/29/18 14:05) Anaphylactic Reaction latex Allergy (Severe, Verified 05/29/18 14:05) Hives Sulfa (Sulfonamide Antibiotics) Allergy (Severe, Verified 05/29/18 14:05) Hives Bleach (Sodium Hypochlorite) Allergy (Verified 05/29/18 14:05) Home Medications: Vits W-Ca,Fe,FA(<1Mg) [] 1 each PO DAILY 01/20/18 [History] Hx Tetanus, Diphtheria Vaccination/Date Given: Yes Hx Influenza Vaccination/Date Given: No Hx Pneumococcal Vaccination/Date Given: No - Review of Systems Constitutional: Fever Eyes: No Symptoms Ears, Nose, & Throat: No Symptoms Respiratory: Cough, No Dyspnea, No Stridor, No Wheezing Cardiac: No Symptoms, No Chest Pain, No Palpitations, No Syncope Abdominal/Gastrointestinal: No Symptoms, No Abdominal Pain, No Nausea, No Vomiting, No Diarrhea Genitourinary Symptoms: , No Dysuria, No Frequency, No Hematuria Musculoskeletal: No Symptoms Skin: No Symptoms Neurological: No Symptoms Psychological: No Symptoms Endocrine: No Symptoms Hematologic/Lymphatic: No Symptoms Immunological/Allergic: No Symptoms All Other Systems: Reviewed and Negative - Past Medical History Pertinent Past Medical History: No Other Medical History: pre eclampsia with 1st , 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 appendectomy - Social History Smoking Status: Never smoker Exposure to second hand smoke: No Drug Use: none Patient Lives Alone: No - Female History Hx Last Menstrual Period: 11/04/17 Hx Now: Yes Expected Date of Delivery: 08/12/18 - Nursing Vital Signs Nursing Vital Signs: Initial Vital Signs Temperature 100.1 F 05/29/18 14:07 Pulse Rate 142 H 05/29/18 14:07 Respiratory Rate 18 05/29/18 14:07 Blood Pressure 138/77 05/29/18 14:07 O2 Sat by Pulse Oximetry 98 05/29/18 14:07 - Physical Exam SpO2: 97 - Course Nursing assessment & vital signs reviewed: Yes Ordered Tests: Active Orders 24 hr Category Date Time Status Clean Catch Urine Specimen STAT Care 05/29/18 14:38 Active IV Insertion STAT Care 05/29/18 14:38 Active CHEST 1 VIEW (PORTABLE) Stat Exams 05/29/18 14:39 Completed BMP Stat Lab 05/29/18 15:00 Completed CBC W DIFF Stat Lab 05/29/18 15:00 Completed CULTURE,URINE Stat Lab 05/29/18 15:18 Received Manual Differential NC Stat Lab 05/29/18 15:00 Completed [place] Screen Stat Lab 05/29/18 15:00 Completed UA W/RFX UR CULTURE Stat Lab 05/29/18 15:18 Completed Medication Summary Discontinued Medications Generic Name Dose Route Start Last Admin Trade Name Roque PRN Reason Stop Dose Admin Cephalexin HCl 500 mg 05/29/18 16:03 05/29/18 16:15 Keflex 500 Mg PO 05/29/18 16:04 500 mg STAT ONE Administration Cephalexin HCl Confirm 05/29/18 16:15 Keflex 500 Mg Administered 05/29/18 16:16 Dose 500 mg .ROUTE .STK-MED ONE Sodium Chloride 1,000 mls @ 999 mls/hr 05/29/18 14:38 05/29/18 16:39 Sodium Chloride 0.9% 1000 Ml IV 05/29/18 15:38 Infused .Q1H1M STA Infusion Sodium Chloride Confirm 05/29/18 14:53 Sodium Chloride 0.9% 1000 Ml Administered 05/29/18 14:54 Dose 1,000 mls @ ud .ROUTE .STK-MED ONE Oseltamivir Phosphate 75 mg 05/29/18 15:50 05/29/18 15:51 Tamiflu 75mg Capsule PO 05/29/18 15:51 75 mg STAT ONE Administration Oseltamivir Phosphate Confirm 05/29/18 15:49 Tamiflu 75mg Capsule Administered 05/29/18 15:50 Dose 75 mg PO .STK-MED ONE Lab/Rad Data: Laboratory Result Diagrams 05/29/18 15:00 05/29/18 15:00 Laboratory Results 05/29/18 05/29/18 05/29/18 Range/Units 15:18 15:00 15:00 WBC (4.0-10.5) K/mm3 RBC (4.1-5.4) M/mm3 Hgb (12.0-16.0) gm/dl Hct (35-47) % MCV (78-100) fl MCH (26-32) pg MCHC (32-36) g/dl RDW (11.5-14.0) % Plt Count (150-450) K/mm3 MPV (6-9.5) fl Segmented Neutrophils (36.0-66.0) % Band Neutrophils (0.0-2.0) % Lymphocytes (Manual) (24-44) % Monocytes (Manual) (0.0-12.0) % Platelet Estimate (NORMAL) RBC Morphology Sodium (137-145) mmol/L Potassium (3.5-5.1) mmol/L Chloride (98-107) mmol/L Carbon Dioxide (22-30) mmol/L Anion Gap (5-15) MEQ/L BUN (7-17) mg/dL Creatinine (0.52-1.04) mg/dL Estimated GFR ML/MIN Glucose (74-106) mg/dL Calcium (8.4-10.2) mg/dL Urine Color DARK YELLOW (YELLOW) Urine Appearance CLOUDY (CLEAR) Urine pH 5.0 (5-6) Ur Specific [place] 1.026 (1.005-1.025) Urine Protein 100 (Negative) Urine Ketones SMALL (NEGATIVE) Urine Blood NEGATIVE (0-5) David/ul Urine Nitrite NEGATIVE (NEGATIVE) Urine Bilirubin NEGATIVE (NEGATIVE) Urine Urobilinogen 4 (0-1) mg/dL Ur Leukocyte Esterase MODERATE (NEGATIVE) Urine WBC (Auto) 6-10 (0-5) /HPF Urine RBC (Auto) 3-5 (0-2) /HPF U Epithel Cells (Auto) FEW (FEW) /HPF Urine Bacteria (Auto) RARE (NEGATIVE) /HPF Unidentified Crystals 2-5 (NEGATIVE) /HPF Urine Mucus (Auto) MANY (NEGATIVE) /HPF Urine Culture Reflexed YES (NO) Urine Glucose NEGATIVE (NEGATIVE) mg/dL Monoscreen NEGATIVE (Negative) Influenza Type A Ag POSITIVE (NEGATIVE) Influenza Type B Ag NEGATIVE (NEGATIVE) RSV (PCR) NEGATIVE (Negative) Group A Strep Antibody NEGATIVE (NEGATIVE) 05/29/18 05/29/18 Range/Units 15:00 15:00 WBC 5.1 (4.0-10.5) K/mm3 RBC 3.72 L (4.1-5.4) M/mm3 Hgb 10.7 L (12.0-16.0) gm/dl Hct 32.3 L (35-47) % MCV 86.8 (78-100) fl MCH 28.7 (26-32) pg MCHC 33.1 (32-36) g/dl RDW 13.4 (11.5-14.0) % Plt Count 162 (150-450) K/mm3 MPV 9.4 (6-9.5) fl Segmented Neutrophils 87 H (36.0-66.0) % Band Neutrophils 8 H (0.0-2.0) % Lymphocytes (Manual) 2 L (24-44) % Monocytes (Manual) 3 (0.0-12.0) % Platelet Estimate NORMAL (NORMAL) RBC Morphology NORMAL Sodium 133 L (137-145) mmol/L Potassium 3.8 (3.5-5.1) mmol/L Chloride 102 (98-107) mmol/L Carbon Dioxide 20 L (22-30) mmol/L Anion Gap 14.2 (5-15) MEQ/L BUN 7 (7-17) mg/dL Creatinine 0.73 (0.52-1.04) mg/dL Estimated GFR > 60.0 ML/MIN Glucose 97 (74-106) mg/dL Calcium 9.0 (8.4-10.2) mg/dL Urine Color (YELLOW) Urine Appearance (CLEAR) Urine pH (5-6) Ur Specific [place] (1.005-1.025) Urine Protein (Negative) Urine Ketones (NEGATIVE) Urine Blood (0-5) David/ul Urine Nitrite (NEGATIVE) Urine Bilirubin (NEGATIVE) Urine Urobilinogen (0-1) mg/dL Ur Leukocyte Esterase (NEGATIVE) Urine WBC (Auto) (0-5) /HPF Urine RBC (Auto) (0-2) /HPF U Epithel Cells (Auto) (FEW) /HPF Urine Bacteria (Auto) (NEGATIVE) /HPF Unidentified Crystals (NEGATIVE) /HPF Urine Mucus (Auto) (NEGATIVE) /HPF Urine Culture Reflexed (NO) Urine Glucose (NEGATIVE) mg/dL Monoscreen (Negative) Influenza Type A Ag (NEGATIVE) Influenza Type B Ag (NEGATIVE) RSV (PCR) (Negative) Group A Strep Antibody (NEGATIVE) - Progress Progress: improved Progress Note: 05/29/18 16:46 cxr-normal Counseled pt/family regarding: lab results, diagnosis, need for follow-up, rad results - Departure Time of Disposition: 16:47 Departure Disposition: Home Clinical Impression: Influenza A, UTI (urinary tract infection) Condition: Stable Critical Care Time: No Referrals: EFREN VIDAL [Primary Care Provider] - Additional Instructions: drink plenty of fluids. keep your appointment with dr. vidal in the morning. Prescriptions: Cephalexin Mh 500 mg [Keflex 500 mg] 500 mg PO TID #21 capsule Oseltamivir 75 mg [Tamiflu 75MG Capsule] 75 mg PO BID #10 cap
[2018-05-29 16:53] VITALS: BP 101/44; PULSE 130; O2SAT 98
== END 2018-05-29 16:59 | disposition home or self-care (01) ==
LOC: ED 13:54
DX: J11.1 Influenza due to unidentified influenza virus with other respiratory manifestations (principal); O23.43 Unspecified infection of urinary tract in pregnancy, third trimester
CPT/HCPCS: 36000; 36415; 71045; 80048; 81001; 85025; 86308; 87086; 87631; 87651; 96360; 99284; A9270-GY

== ENCOUNTER 2018-06-15 23:18 | Observation (INO) | payer OTHER ==
[2018-06-15 23:53] VITALS: BP 131/73; PULSE 106
[2018-06-15 23:57] LABS: Amphetamine,Urine NEGATIVE (NEGATIVE); Barbiturate,Urine NEGATIVE (NEGATIVE); Benzodiazepine,Urine NEGATIVE (NEGATIVE); Cocaine,Urine NEGATIVE (NEGATIVE); Methadone,Urine NEGATIVE (NEGATIVE); Opiate,Urine NEGATIVE (NEGATIVE); PCP,Urine NEGATIVE (NEGATIVE); THC,Urine NEGATIVE (NEGATIVE)
[2018-06-15 23:59] LABS: Appearance CLOUDY (CLEAR); Bacteria FEW /HPF (NEGATIVE); Bilirubin NEGATIVE (NEGATIVE); Blood NEGATIVE Ery/ul (0-5); Epithelial Cells MODERATE /HPF (FEW); Glucose NEGATIVE (NEGATIVE); Ketones TRACE (NEGATIVE); Leukocyte Esterase LARGE (NEGATIVE); Mucus SLIGHT /HPF (NEGATIVE); Nitrite NEGATIVE (NEGATIVE); Protein,Urine Dip 30 (Negative); Urobilinogen 2 mg/dL (0-1); WBC 26-50 /HPF (0-5)
== END 2018-06-16 00:55 | disposition home or self-care (01) ==
LOC: OB 23:18
PROVIDERS: ADMIT Family Medicine; ATTEND Family Medicine
DX: Z34.83 Encounter for supervision of other normal pregnancy, third trimester (principal)
CPT/HCPCS: 80307; 81001; 87086; G0378

== ENCOUNTER 2018-06-28 13:27 | Observation (INO) | payer OTHER ==
[2018-06-28 14:05] VITALS: BP 118/65; PULSE 95
[2018-06-28 14:05] LABS: Hematocrit 31.9 % (35-47); Hemoglobin 10.4 gm/dl (12.0-16.0); Mean Cell Volume 87.2 fl (78-100); Mean Corpuscular Hemoglobin 28.4 pg (26-32); Mean Corpuscular Hgb Concent. 32.6 g/dl (32-36); Platelet Count 180 K/mm3 (150-450); Red Blood Count 3.66 M/mm3 (4.1-5.4); Red Cell Distribution Width 14.8 % (11.5-14.0)
[2018-06-28 14:49] LABS: ALBUMIN 3.7 g/dL (3.5-5.0); ALKALINE PHOSPHATASE 138 U/L (38-126); ANION GAP 12.4 MEQ/L (5-15); BLOOD UREA NITROGEN 9 mg/dL (7-17); CHLORIDE 107 mmol/L (98-107); Calcium 8.9 mg/dL (8.4-10.2); Carbon Dioxide 22 mmol/L (22-30); Glucose 93 mg/dL (74-106); Potassium 4.1 mmol/L (3.5-5.1); SGOT/AST 15 U/L (14-36); SGPT/ALT 14 U/L (0-35); SODIUM 137 mmol/L (137-145); Total Protein 6.6 g/dL (6.3-8.2)
== END 2018-06-28 16:00 | disposition home or self-care (01) ==
LOC: OB 13:27
PROVIDERS: ADMIT Family Medicine; ATTEND Family Medicine
DX: Z34.83 Encounter for supervision of other normal pregnancy, third trimester (principal)
CPT/HCPCS: 36415; 59025; 80053; 84550; 85027; G0378

== ENCOUNTER 2018-07-02 00:33 | Observation (INO) | payer OTHER ==
[2018-07-02 01:16] LABS: Amphetamine,Urine NEGATIVE (NEGATIVE); Barbiturate,Urine NEGATIVE (NEGATIVE); Benzodiazepine,Urine NEGATIVE (NEGATIVE); Cocaine,Urine NEGATIVE (NEGATIVE); Methadone,Urine NEGATIVE (NEGATIVE); Opiate,Urine NEGATIVE (NEGATIVE); PCP,Urine NEGATIVE (NEGATIVE); THC,Urine NEGATIVE (NEGATIVE)
[2018-07-02 01:25] LABS: Appearance CLOUDY (CLEAR); Bacteria RARE /HPF (NEGATIVE); Bilirubin NEGATIVE (NEGATIVE); Blood NEGATIVE Ery/ul (0-5); Epithelial Cells MANY /HPF (FEW); Glucose NEGATIVE (NEGATIVE); Ketones NEGATIVE (NEGATIVE); Leukocyte Esterase LARGE (NEGATIVE); Mucus SLIGHT /HPF (NEGATIVE); Nitrite NEGATIVE (NEGATIVE); Protein,Urine Dip NEGATIVE (Negative); Specific Gravity 1.013 (1.005-1.025); Urobilinogen NEGATIVE mg/dL (0-1)
[2018-07-02] MEDS ORDERED: Lactated Ringers 1,000 ML IV ONE (02:55)
[2018-07-02] MEDS: BRETHINE 1 MG/ML SQ PRN ×2 (03:03→05:37)
[2018-07-02] MEDS: Lactated Ringers 1,000 ML IV SCH ×2 (05:38→17:18)
[2018-07-02] MEDS: Zofran 4 MG/2 ML VIAL IV PRN (05:50)
[2018-07-02] MEDS ORDERED: Celestone Soluspan 6MG/ML IM ONE (07:45)
[2018-07-02 07:59] LABS: Hematocrit 30.5 % (35-47); Mean Cell Volume 86.6 fl (78-100); Mean Corpuscular Hemoglobin 28.4 pg (26-32); Mean Corpuscular Hgb Concent. 32.8 g/dl (32-36); Platelet Count 166 K/mm3 (150-450); Red Blood Count 3.52 M/mm3 (4.1-5.4); Red Cell Distribution Width 14.7 % (11.5-14.0); White Blood Count 8.3 K/mm3 (4.0-10.5)
[2018-07-02] MEDS ORDERED: Lactated Ringers 1,000 ML IV SCH (08:00)
[2018-07-02] MEDS ORDERED: Magnesium Sulfate 40 Gm/1000 Ml H2O Premix*** 1,000 ML IV SCH (08:00)
[2018-07-02 08:03] LABS: INR 1.01 (0.8-3.0); PROTIME 11.8 SECONDS (9.95-12.35)
[2018-07-02 08:05] LABS: PTT 22.5 SECONDS (25.3-37.0)
[2018-07-02] MEDS: ROCEPHIN 1 Gm-D5w 50 ml Bag** 1 G/50 ML IVPB IV SCH (08:14)
[2018-07-02 08:20] LABS: ALBUMIN 3.4 g/dL (3.5-5.0); ALKALINE PHOSPHATASE 136 U/L (38-126); ANION GAP 12.7 MEQ/L (5-15); BLOOD UREA NITROGEN 6 mg/dL (7-17); CHLORIDE 106 mmol/L (98-107); Calcium 8.8 mg/dL (8.4-10.2); Carbon Dioxide 21 mmol/L (22-30); Creatinine 1 0.55 mg/dL (0.52-1.04); Glucose 86 mg/dL (74-106); Potassium 3.6 mmol/L (3.5-5.1); SGOT/AST 16 U/L (14-36); SGPT/ALT 17 U/L (0-35); SODIUM 136 mmol/L (137-145); Total Protein 6.1 g/dL (6.3-8.2)
[2018-07-02 10:46] LABS: Appearance CLEAR (CLEAR); Bilirubin NEGATIVE (NEGATIVE); Blood NEGATIVE Ery/ul (0-5); Glucose NEGATIVE (NEGATIVE); Ketones NEGATIVE (NEGATIVE); Leukocyte Esterase NEGATIVE (NEGATIVE); Mucus SLIGHT /HPF (NEGATIVE); Nitrite NEGATIVE (NEGATIVE); Protein,Urine Dip NEGATIVE (Negative); Urobilinogen NEGATIVE mg/dL (0-1)
[2018-07-02 10:50] LABS: Bacteria FEW /HPF (NEGATIVE); Epithelial Cells FEW /HPF (FEW); RBC 0-2 /HPF (0-2); WBC 0-2 /HPF (0-5)
--- NOTE | 2018-07-02 11:14 | XRAY ---
Indication: labor. well-being. 2-dimensional OB ultrasound performed. Comparison: May 07, 2018. Again there is a single viable intrauterine in cephalic presentation. heart rate 147 BPM. anatomy including three-vessel cord and cord insertion previously documented. Visualized stomach and bladder appear unremarkable. Anterior placenta without abruption/previa. Cervical length measures 3.3 cm. BPD measures 9.51 cm corresponding to 38 weeks 6 days. HC measures 33.64 cm corresponding to 38 weeks 4 days. AC measures 33.86 cm corresponding to 37 weeks 5 days. FL measures 7.23 cm corresponding to 37 weeks 0 day. CHAIM is 12.6 cm. Impression: Again single viable intrauterine with mean gestational age 38 weeks 0 day. There has been progression of with fetus now measuring 14 days larger since comparison exam and 21 days larger since first exam January 22, 2018.
[2018-07-02 13:20] VITALS: O2SAT 98
--- NOTE | 2018-07-02 17:20 | XRAY ---
Indication: Right-sided pain. Two-dimensional renal sonogram performed. Comparison: None Both kidneys normal in reniform shape with normal perfusion. Right kidney measures 13.0 x 5.5 x 5.3 cm and the left measures 13.0 x 5.3 x 5.7 cm. Right kidney demonstrates mild hydronephrosis. Otherwise no suspicious renal mass or perinephric fluid. Cortical medullary differentiation preserved. Urinary bladder is empty via Bull catheter. Incidental tiny gallstones. Impression: 1. Mild right hydronephrosis without suspicious renal mass. CT renal stone study may yield further information if clinically warranted. 2. Negative left renal sonogram. 3. Incidental tiny gallstones.
[2018-07-02] MEDS ORDERED: CORTISONE 1% CREAM TP PRN (23:58)
[2018-07-03] MEDS ORDERED: Phenergan 25 MG INJ IV PRN
[2018-07-03] MEDS ORDERED: MORPHINE SULFATE 10 MG/ML IV PRN (00:06)
[2018-07-03] MEDS: Zofran 4 MG/2 ML VIAL IV PRN (00:56)
[2018-07-03] MEDS: Lactated Ringers 1,000 ML IV SCH (05:10)
[2018-07-03] MEDS ORDERED: Celestone Soluspan 6MG/ML IM ONE (08:34)
[2018-07-03] MEDS: ROCEPHIN 1 Gm-D5w 50 ml Bag** 1 G/50 ML IVPB IV SCH (09:08)
[2018-07-03 11:40] VITALS: BP 109/69; PULSE 78
== END 2018-07-03 10:00 | disposition home or self-care (01) ==
LOC: OB 00:33
PROVIDERS: ADMIT Family Medicine; ATTEND Family Medicine
DX: Z34.83 Encounter for supervision of other normal pregnancy, third trimester (principal)
CPT/HCPCS: 36415; 76770; 76805; 80053; 80307; 81001; 83735; 83986; 85027; 85610; 85730; 87081; 87086; 96372; G0378; J0696; J0702; J2405; A9270-GY

== ENCOUNTER 2018-07-03 08:25 | Observation (INO) | payer OTHER ==
[2018-07-05 13:53] VITALS: BP 119/74; PULSE 88
== END 2018-07-05 14:15 | disposition home or self-care (01) ==
LOC: EDSTATUS 13:27 → RAD 07-05 13:20 → OB 07-05 13:28
PROVIDERS: ADMIT Family Medicine; ATTEND Family Medicine
DX: Z34.83 Encounter for supervision of other normal pregnancy, third trimester (principal)
CPT/HCPCS: 59025; G0378

== ENCOUNTER 2018-07-09 12:15 | Observation (INO) | payer OTHER ==
[2018-07-09 12:45] VITALS: BP 123/71; PULSE 91
== END 2018-07-09 14:01 | disposition home or self-care (01) ==
LOC: OB 12:15
PROVIDERS: ADMIT Family Medicine; ATTEND Family Medicine
DX: Z34.83 Encounter for supervision of other normal pregnancy, third trimester (principal)
CPT/HCPCS: 59025; G0378

== ENCOUNTER 2018-07-12 12:03 | Observation (INO) | payer OTHER ==
[2018-07-12 13:08] VITALS: PULSE 100
== END 2018-07-12 12:40 | disposition home or self-care (01) ==
LOC: OB 12:03
PROVIDERS: ADMIT Family Medicine; ATTEND Family Medicine
DX: Z34.83 Encounter for supervision of other normal pregnancy, third trimester (principal)
CPT/HCPCS: 59025; G0378

== ENCOUNTER 2018-07-14 23:22 | Observation (INO) | payer OTHER ==
[2018-07-15 00:04] LABS: Appearance SLIGHTLY CLOUDY (CLEAR); Bacteria RARE /HPF (NEGATIVE); Bilirubin NEGATIVE (NEGATIVE); Blood NEGATIVE Ery/ul (0-5); Epithelial Cells RARE /HPF (FEW); Glucose 50 mg/dL (NEGATIVE); Ketones TRACE (NEGATIVE); Leukocyte Esterase TRACE (NEGATIVE); Mucus SLIGHT /HPF (NEGATIVE); Nitrite NEGATIVE (NEGATIVE); Protein,Urine Dip 30 (Negative); RBC 0-2 /HPF (0-2); Specific Gravity 1.028 (1.005-1.025); Urobilinogen 4 mg/dL (0-1)
[2018-07-15 01:55] VITALS: BP 120/59; PULSE 90
== END 2018-07-15 02:05 | disposition home or self-care (01) ==
LOC: OB 23:22
PROVIDERS: ADMIT Family Medicine; ATTEND Family Medicine
DX: Z34.83 Encounter for supervision of other normal pregnancy, third trimester (principal)
CPT/HCPCS: 81001; 87086; G0378

== ENCOUNTER 2018-07-17 14:04 | Observation (INO) | payer OTHER ==
[2018-07-17 14:27] VITALS: BP 126/81; PULSE 90
== END 2018-07-17 15:05 | disposition home or self-care (01) ==
LOC: OB 14:04
PROVIDERS: ADMIT Family Medicine; ATTEND Family Medicine
DX: Z34.83 Encounter for supervision of other normal pregnancy, third trimester (principal)
CPT/HCPCS: G0378

== ENCOUNTER 2018-07-19 12:35 | Observation (INO) | payer OTHER ==
[2018-07-19 13:14] VITALS: BP 125/67; PULSE 91
== END 2018-07-19 13:10 | disposition home or self-care (01) ==
LOC: OB 12:35
PROVIDERS: ADMIT Family Medicine; ATTEND Family Medicine
DX: Z34.83 Encounter for supervision of other normal pregnancy, third trimester (principal)
CPT/HCPCS: 59025; G0378

== ENCOUNTER 2018-07-22 10:38 | Inpatient (IN) | payer OTHER ==
[2018-07-22] MEDS ORDERED: Cervidil 10 MG VAG SCH (12:00)
[2018-07-22] MEDS ORDERED: BRETHINE 1 MG/ML SQ PRN (12:00)
[2018-07-22 13:06] LABS: BASOPHIL % 0.2 % (0.0-0.4); Basophil (Absolute #) 0.02 (0-0.4); Eosinophil % 0.6 % (0.00-5.0); Eosinophil (Absolute #) 0.05 (0-0.5); Granulocyte Absolute (ANC) 6.82 (1.4-6.9); Granulocytes % 83.1 % (36.0-66.0); Hematocrit 31.5 % (35-47); Hemoglobin 10.3 gm/dl (12.0-16.0); Mean Cell Volume 85.1 fl (78-100); Mean Corpuscular Hemoglobin 27.8 pg (26-32); Mean Corpuscular Hgb Concent. 32.7 g/dl (32-36); Mean Platelet Volume 10.1 fl (6-9.5); Monocyte (Absolute #) 0.42 (0.0-1.3); Monocytes % 5.1 % (0.0-12.0); Platelet Count 164 K/mm3 (150-450); Red Cell Distribution Width 15.2 % (11.5-14.0); White Blood Count 8.2 K/mm3 (4.0-10.5)
[2018-07-22 13:56] LABS: Amphetamine,Urine NEGATIVE (NEGATIVE); Barbiturate,Urine NEGATIVE (NEGATIVE); Benzodiazepine,Urine NEGATIVE (NEGATIVE); Cocaine,Urine NEGATIVE (NEGATIVE); Methadone,Urine NEGATIVE (NEGATIVE); Opiate,Urine NEGATIVE (NEGATIVE); PCP,Urine NEGATIVE (NEGATIVE); THC,Urine NEGATIVE (NEGATIVE)
[2018-07-23] MEDS ORDERED: XYLOCAINE 1% HCL 20 ML MDV IJ PRN
[2018-07-23] MEDS ORDERED: PITOCIN 30 UNITS/ LR 500 ML 500 ML IV SCH
[2018-07-23] MEDS ORDERED: OMNIPEN 2 GM / NACL 100ML 100 ML IV ONE
[2018-07-23] MEDS ORDERED: OMNIPEN 1 GM IV SCH (01:00)
[2018-07-23] MEDS: Lactated Ringers 1,000 ML IV SCH ×2 (02:01→11:29)
[2018-07-23] MEDS: PITOCIN 30 UNITS/ LR 500 ML 500 ML IV SCH (02:03)
[2018-07-23] MEDS: OMNIPEN 1GM / NaCl 100ML 100 ML IV SCH ×2 (07:08→10:55)
[2018-07-23] MEDS ORDERED: Zofran 4 MG/2 ML VIAL IV PRN (09:03)
--- NOTE | 2018-07-23 09:17 | XRAY ---
Indication: weight. 2-dimensional OB ultrasound performed. Comparison July 02, 2018. Again there is a single viable intrauterine in cephalic presentation. heart rate 154 BPM. anatomy previously documented. Visualized stomach and bladder appear unremarkable. BPD measures 10.08 cm corresponding to 41 weeks 4 days. HC measures 35.72 cm, too large to calculate gestational age. AC measures 37.54 cm corresponding to 41 weeks 3 days. FL measures 7.68 cm corresponding to 39 weeks 2 days. Estimated weight 9 lbs. 8 oz., +/-1 lb. 7 oz. Approximately greater than 97 percentile. CHAIM is 8.0 cm. Impression: Again single viable intrauterine with mean gestational age 40 weeks 5 days. measurements favor large for gestational age.
[2018-07-24] MEDS: OMNIPEN 1GM / NaCl 100ML 100 ML IV SCH ×3 (05:06→12:57)
[2018-07-24] MEDS: PITOCIN 30 UNITS/ LR 500 ML 500 ML IV SCH (05:16)
[2018-07-24] MEDS ORDERED: Tums EX 750 MG PO PRN (06:00)
[2018-07-24] MEDS: Lactated Ringers 1,000 ML IV SCH (12:06)
[2018-07-24] MEDS ORDERED: Nubain 10 MG/ML IV ONE (15:30)
[2018-07-24] MEDS ORDERED: CEFAZOLIN 2 GM-D5W BAG** 2 GM/50 ML ML IV SCH (18:00)
[2018-07-24] MEDS ORDERED: Lactated Ringers 1,000 ML IV ONE (18:01)
[2018-07-24] MEDS ORDERED: Reglan 10 MG/2 ML IV SCH (18:15)
[2018-07-24] MEDS ORDERED: Pepcid 20 MG VIAL IV SCH (18:15)
[2018-07-24 18:16] LABS: Hematocrit 32.8 % (35-47); Hemoglobin 10.7 gm/dl (12.0-16.0); Mean Cell Volume 85.9 fl (78-100); Mean Corpuscular Hgb Concent. 32.6 g/dl (32-36); Mean Platelet Volume 10.1 fl (6-9.5); Platelet Count 161 K/mm3 (150-450); Red Blood Count 3.82 M/mm3 (4.1-5.4); Red Cell Distribution Width 15.4 % (11.5-14.0); White Blood Count 10.9 K/mm3 (4.0-10.5)
[2018-07-24 18:25] LABS: PROTIME 11.6 SECONDS (9.95-12.35)
[2018-07-24 18:28] LABS: PTT 22.3 SECONDS (25.3-37.0)
[2018-07-24 19:36] LABS: ABO TYPING O; Antibody Screen NEGATIVE (NEGATIVE); RH TYPING POSITIVE
[2018-07-24] MEDS ORDERED: DEMEROL 50 MG ONE (20:17)
[2018-07-24] MEDS ORDERED: BENADRYL 50 MG/ML IV PRN (21:44)
[2018-07-24] MEDS ORDERED: DEMEROL 50 MG IV PRN (21:44)
[2018-07-24] MEDS ORDERED: MORPHINE SULFATE 2 MG INJ IV PRN (21:44)
[2018-07-24] MEDS ORDERED: Narcan 0.4 MG/ML IV PRN (21:44)
[2018-07-24] MEDS ORDERED: HOLD NARCOTIC ANALGESICS AND SEDATIVES X24 HR MC PRN (21:44)
[2018-07-24] MEDS ORDERED: CLARITIN 10 MG PO PRN (21:44)
[2018-07-24 21:51] LABS: Appearance CLEAR (CLEAR); Bilirubin NEGATIVE (NEGATIVE); Blood NEGATIVE Ery/ul (0-5); Glucose NEGATIVE (NEGATIVE); Ketones SMALL (NEGATIVE); Leukocyte Esterase NEGATIVE (NEGATIVE); Nitrite NEGATIVE (NEGATIVE); Protein,Urine Dip NEGATIVE (Negative); Specific Gravity 1.017 (1.005-1.025); Urobilinogen NEGATIVE mg/dL (0-1)
[2018-07-24 21:53] LABS: Bacteria NONE SEEN /HPF (NEGATIVE)
[2018-07-24] MEDS ORDERED: Anucort-HC SUPPOSITORY PR PRN (23:16)
[2018-07-24] MEDS ORDERED: CORTISONE 1% CREAM TP PRN (23:16)
[2018-07-24] MEDS ORDERED: LANSINOH 40 GM TOP PRN (23:16)
[2018-07-24] MEDS: TORAdol 30 mg Injection IV PRN (23:20)
[2018-07-25] MEDS ORDERED: Dextrose 5%/Water IV Soln. 1000 ML 0 ML IV ONE (00:46)
[2018-07-25] MEDS: Dextrose 5%-Lr IV Solution 1000 ML 1,000 ML IV SCH ×2 (01:00→08:31)
[2018-07-25] MEDS: MOTRIN 400 MG PO PRN ×3 (02:24→18:41)
[2018-07-25 05:51] LABS: BASOPHIL % 0.3 % (0.0-0.4); Basophil (Absolute #) 0.02 (0-0.4); Eosinophil % 0.6 % (0.00-5.0); Eosinophil (Absolute #) 0.05 (0-0.5); Granulocyte Absolute (ANC) 5.85 (1.4-6.9); Granulocytes % 75.5 % (36.0-66.0); Hematocrit 26.3 % (35-47); Hemoglobin 8.4 gm/dl (12.0-16.0); Lymphocyte (Absolute #) 1.13 (1.0-4.6); Lymphocytes % 14.6 % (24.0-44.0); Mean Cell Volume 86.8 fl (78-100); Mean Corpuscular Hemoglobin 27.7 pg (26-32); Mean Corpuscular Hgb Concent. 31.9 g/dl (32-36); Mean Platelet Volume 10.7 fl (6-9.5); Platelet Count 164 K/mm3 (150-450); Red Blood Count 3.03 M/mm3 (4.1-5.4); Red Cell Distribution Width 15.3 % (11.5-14.0); White Blood Count 7.8 K/mm3 (4.0-10.5)
--- NOTE | 2018-07-25 08:08 | OP ---
SURGERY DATE/TIME: 07/24/2018 1845 PREOPERATIVE DIAGNOSES: 1) Failure to progress in labor. 2) Preeclampsia. POSTOPERATIVE DIAGNOSES: 1) Failure to progress in labor. 2) Preeclampsia. PROCEDURE: Primary low transverse section. SURGEON: Daniel Rogers M.D. ANESTHESIA: Spinal by Butch Dave CRNA. ESTIMATED BLOOD LOSS: 300 cc. IV FLUIDS: 1300 cc of Crystalloid. URINE OUTPUT: 100 cc clear straw-colored urine. SPECIMEN: Placenta was sent for pathology. DESCRIPTION OF PROCEDURE: After informed, written consent was obtained, the patient was taken to the OR. She underwent spinal anesthesia, prepped and draped in usual sterile fashion. A low transverse skin incision was made by knife after adequate level of anesthesia was assessed. Incision was taken down through the subcutaneous fat to the level of the fascia and nicked on both sides of the midline and extended in horizontal fashion using curved [place] scissors. Next the superior free edge of the fascia was grasped with Claribel clamps and the underlying rectus muscles were dissected free. The same was repeated inferiorly. The peritoneal cavity was then opened and extended in horizontal fashion. A bladder flap was created and reflected over the lower uterine segment. A horizontal uterine incision was made by knife and carried down to the level of the amniotic membranes which were artificially ruptured with some scant clear fluid as she had already been ruptured. A viable male infant was delivered from the vertex presentation with a strong cry immediately after delivery. The oropharynx and nares were bulb suctioned free. The cord was clamped and cut. He was handed off to the awaiting nursery team. The placenta was removed and then the uterus was exteriorized. The uterine cavity was sponge curetted clean with lap sponge. At this point anesthesia noted some blood in the Bull and upon questioning the OR nurse did report there was some question about placement and location. I had anesthesia give a dose of methylene blue which he did IV as well as infused methylene blue up the Bull which there was no blue spillage in the operative field. I could not palpate the Bull bulb. At that time it was surmised that the Bull was indeed not in the bladder. There was no evidence of any bladder injury after IV methylene blue or ureteral injury. Next, the posterior cul-de-sac was wiped free of blood and clot with moist lap sponge and then the uterus was returned to the peritoneal cavity. The lateral gutters were wiped free of blood and clot. Again, after close inspection there was no methylene blue spillage anywhere in the operative field. Finally, the fascia was closed with 0 Vicryl in running locked fashion with good closure and good hemostasis were achieved. The subcutaneous fat was irrigated with warm, sterile saline and any areas of bleeding were cauterized with electrocautery. Finally the skin layer was closed with 4-0 undyed Vicryl in a running subcuticular fashion. Steri-Strips and occlusive dressing were placed over the incision after the field was taken down. It was obvious at that point that the Bull had been placed vaginally and was lying on the bed. Methylene blue had spilled onto the bed and the patient's leg. At that point nursing re-anchored the Bull catheter. There was clear straw-colored urine with slight blue tinged from the IV methylene blue. There was no bleeding and assurance that there was indeed no bladder complication. The patient was transferred to the recovery room in good condition.
[2018-07-25] MEDS: TORAdol 30 mg Injection IV PRN (08:33)
[2018-07-25] MEDS: FERREX 150 PO SCH (10:50)
[2018-07-25] MEDS: Colace 100 MG PO SCH ×2 (10:50→21:41)
[2018-07-25] MEDS: Mylicon 80MG PO PRN (12:00)
[2018-07-25] MEDS: Oxy-IR 5 MG PO PRN ×3 (13:00→21:41)
[2018-07-25] MEDS ORDERED: LIDOCAINE HCL 2% 100 MG/5 ML IJ ONE (15:17)
[2018-07-25] MEDS ORDERED: Zofran 4 MG/2 ML VIAL IV ONE (15:17)
[2018-07-25] MEDS ORDERED: Astramorph-Pf 5 MG/10 ML IJ ONE (15:17)
[2018-07-25] MEDS ORDERED: TORAdol 30 mg Injection IJ ONE (15:17)
[2018-07-25] MEDS ORDERED: Versed 2 MG/2 ML Injection IV ONE (15:17)
[2018-07-25] MEDS ORDERED: Pitocin 10 UNITS/ML IV ONE (15:17)
[2018-07-25] MEDS ORDERED: MARCAINE 0.5%-EPI 1:200,000 VL IJ ONE (15:17)
[2018-07-25] MEDS ORDERED: Phenergan 25 MG INJ IM PRN (19:45)
[2018-07-26] MEDS: MOTRIN 400 MG PO PRN ×2 (01:11→09:47)
[2018-07-26] MEDS: Mylicon 80MG PO PRN (01:11)
[2018-07-26] MEDS: Oxy-IR 5 MG PO PRN ×3 (02:00→13:33)
[2018-07-26 06:00] VITALS: O2SAT 97
--- NOTE | 2018-07-26 08:37 | PCM.DS ---
Discharge Summary Date of Admission: 07/24/18 07:35 Admitting Physician: EFREN IBRAHIM Consults: Consults on Case 07/24/18 17:58 Notify Physician OF ADMISSION 07/24/18 18:01 Notify Anesthesia Provider ROUTINE Primary Care Provider: EFREN IBRAHIM Allergies Allergies acetaminophen Allergy (Severe, Verified 07/19/18 12:48) Anaphylactic Reaction latex Allergy (Severe, Verified 07/19/18 12:48) Hives Sulfa (Sulfonamide Antibiotics) Allergy (Severe, Verified 07/19/18 12:48) Hives Bleach (Sodium Hypochlorite) Allergy (Verified 07/19/18 12:48) nalbuphine [From Nubain] Allergy (Verified 07/25/18 02:46) Hospital Summary - Hospital Course Hospital Course: Pt came in at 37 wk 0d, IOL for pre-eclampsia. Baby's EFW was 9lb 8 oz the day prior to delivery, on ultrasound. Pt had cervadil, then pitocin the next day. Made no progress, so had a balloon catheter then pitocin x > 12h, had AROM early in the day but never progressed over 4 cm. without complication (there was blood in the spears catheter but with methyline blue it was determined that the catheter had been placed in the vagina - no bladder injury). For the first 24 hours she was doing well with pain, but last night her pain increased (tap blocks ). She is limited on her pain meds due to Tylenol allergy. Has been taking oxycodone IR 5mg q4h prn, but will increase that to 10mg q4h prn today due to the increased pain. - Vitals & Intake/Output Vital Signs: Vital Signs Temperature 98.5 F 07/26/18 02:00 Pulse Rate 96 H 07/26/18 02:00 Respiratory Rate 18 07/26/18 02:00 Blood Pressure 114/74 07/26/18 02:00 O2 Sat by Pulse Oximetry 97 07/26/18 02:00 Intake & Output: Intake & Output 07/23/18 07/24/18 07/25/18 07/26/18 11:59 11:59 11:59 11:59 Intake Total 1100 1548 1450 Output Total 600 Balance 1099 516 1090 Weight 114.759 kg 114.759 kg - Lab Result Diagrams: 07/25/18 05:10 Micro Results-Entire Visit: Microbiology 07/24/18 20:00 Urine Culture - Final Urine, Catheterized NO GROWTH - Procedures and Test Procedures and Tests throughout Hospitalization: Therapy Orders & Screens 07/24/18 19:45 Standby Routine Comment: Diagnosis: INDUCTION OF LABOR Discharge Exam General Appearance: mild distress, alert Neurologic Exam: oriented x 3, cooperative Skin Exam: normal color, warm, dry, No rash Respiratory Exam: normal breath sounds, lungs clear, No crackles/rales, No rhonchi, No wheezing Cardiovascular Exam: regular rate/rhythm, normal heart sounds, No murmur Gastrointestinal/Abdomen Exam: soft, tenderness (mild diffuse), other (fundus firm under umbilicus. wound c/d/i), No distention, No guarding, No rebound Extremity Exam: normal inspection Final Diagnosis/Problem List - Final Discharge Diagnosis/Problem (1) delivery delivered Current Visit: Yes Status: Acute Assessment & Plan: Will increase pain medicine today and send pt home on Oxycodone IR due to Tylenol allergy. Otherwise doing well, up out of bed and tolerating po. Code(s): O82 - ENCOUNTER FOR DELIVERY WITHOUT INDICATION - Discharge Disposition: Home, Self-Care Condition: Good Prescriptions: New Ibuprofen 800 mg PO TID PRN #35 tablet PRN Reason: Pain Oxycodone HCl 5 mg Ir [Oxy-IR 5 MG] 10 mg PO Q4H PRN #30 tab MDD 6 PRN Reason: Severe Pain Continue Vits W-Ca,Fe,FA(<1Mg) [] 1 each PO DAILY Ondansetron ODT 4 MG [Zofran Odt 4 mg] 4 mg PO Q6H PRN PRN #10 tab.rapdis PRN Reason: Nausea/Vomiting Loratadine 10 mg [Claritin 10 mg] 10 mg PO DAILY PRN PRN PRN Reason: Allergies Follow up with: EFREN IBRAHIM [Primary Care Provider] - 1 Week Forms: Work/School Release Form
[2018-07-26] MEDS: FERREX 150 PO SCH (09:38)
[2018-07-26] MEDS: Colace 100 MG PO SCH (09:38)
[2018-07-26 11:24] LABS: Appearance CLOUDY (CLEAR); Bacteria FEW /HPF (NEGATIVE); Bilirubin NEGATIVE (NEGATIVE); Blood LARGE Ery/ul (0-5); Epithelial Cells MANY /HPF (FEW); Glucose NEGATIVE (NEGATIVE); Ketones NEGATIVE (NEGATIVE); Leukocyte Esterase MODERATE (NEGATIVE); Mucus SLIGHT /HPF (NEGATIVE); Nitrite NEGATIVE (NEGATIVE); Protein,Urine Dip 100 (Negative); Specific Gravity 1.014 (1.005-1.025); Urobilinogen 2 mg/dL (0-1); WBC >100 /HPF (0-5)
[2018-07-26 11:27] LABS: RBC >101 /HPF (0-2)
[2018-07-26 15:59] VITALS: BP 112/61; PULSE 94
== END 2018-07-26 15:10 | disposition home or self-care (01) | DRG 788 ==
LOC: OB 11:57 → OBSVTOIN 07-24 07:35 → MED SURG 07-24 22:26
PROVIDERS: ADMIT Family Medicine; ATTEND Family Medicine
PROC: 10D00Z1 Extraction of Products of Conception, Low, Open Approach (ICD-10-PCS; principal; 2018-07-24)
DX: O14.94 Unspecified pre-eclampsia, complicating childbirth (principal); O62.0 Primary inadequate contractions; Z3A.37 37 weeks gestation of pregnancy; Z37.0 Single live birth
CPT/HCPCS: 36415; 62322; 64488; 76805; 76937; 76942; 80307; 81001; 81003; 83986; 84550; 85025; 85027; 85610; 85730; 86850; 86900; 86901; 87086; 88307; 94799; G0378; J0290; J0690; J1200; J1885; J2175; J2250; J2274; J2300; J2405; J2590; L0625; A9270-GY